=== PATIENT | male | born 1965 | race Caucasian/White ===

== ENCOUNTER 2017-01-06 14:36 | Observation (INO) | payer OTHER ==
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
[2017-01-06] MEDS ORDERED: HYDROmorphONE/DILAUDID 1 MG/ML INJ IVP ONE ×3 (15:03→15:29)
[2017-01-06 15:16] LABS: ANION GAP 15 mEq/L (8-16); CALCIUM 9.9 mg/dL (8.5-10.4); CARBON DIOXIDE 20 mEq/l (22-31); CHLORIDE 106 mEq/L (97-110); CREATININE 1.2 mg/dL (0.7-1.3); GLOMERULAR FILTRATION RATE > 60; GLUCOSE 173 mg/dL (70-100); POTASSIUM 4.7 mEq/L (3.5-5.2); SODIUM 141 mEq/L (134-144)
[2017-01-06] MEDS ORDERED: IOPAMIDOL (ISOVUE-300) 100 ML BTL ONE (15:22)
[2017-01-06] MEDS ORDERED: KETOROLAC 30 MG/1 ML SDV IVP ONE (18:00)
[2017-01-06] MEDS ORDERED: ONDANSETRON 4 MG/2 ML VIAL IVP PRN (18:46)
[2017-01-06] MEDS ORDERED: HYDROmorphONE/DILAUDID 1 MG/ML INJ IVP PRN (18:46)
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
[2017-01-06] MEDS: D5W 1/2 NS W/ 20 KCl/L 1,000 ML IV SCH (19:52)
[2017-01-06] MEDS: FLUTICASONE NASAL 120 SPRAYS/16 GM MDI EACHNARE SCH (20:24)
[2017-01-07] MEDS: KETOROLAC 15 MG/1 ML SDV IVP SCH ×3 (01:38→12:19)
[2017-01-07 04:47] LABS: % IMMATURE GRANULYOCYTES 0.5 % (0.0-1.1); ABSOLUTE IMMATURE GRANULOCYTES 0.06 10^3/uL (0.00-0.10); ADD DIFF? NO; ADD MORPH? NO; ADD SCAN? NO; ATYPICAL LYMPHOCYTE FLAG 0 (0-99); FRAGMENT RBC FLAG 0 (0-99); HEMATOCRIT 38.1 % (40.0-51.0); HEMOGLOBIN 13.9 g/dL (13.7-17.5); LEFT SHIFT FLG 0 (0-99); LIPEMIA HEMOLYSIS FLAG 90 (0-99); MEAN CELL HEMOGLOBIN 32.3 pg (27.9-34.1); MEAN CELL HEMOGLOBIN CONCENTR. 36.5 g/dL (32.4-36.7); MEAN CELL VOLUME 88.6 fL (81.5-99.8); PLATELET CLUMPS FLAG 20 (0-99); PLATELET COUNT 227 10^3/uL (150-400); RED CELL DISTRIBUTION WIDTH 13.1 % (11.5-15.2)
[2017-01-07 04:49] VITALS: RESP 16
[2017-01-07 05:04] LABS: AMYLASE 43 IU/L (30-110); ANION GAP 12 mEq/L (8-16); CALCIUM 9.5 mg/dL (8.5-10.4); CARBON DIOXIDE 24 mEq/l (22-31); CHLORIDE 105 mEq/L (97-110); CREATININE 1.1 mg/dL (0.7-1.3); GLOMERULAR FILTRATION RATE > 60; GLUCOSE 161 mg/dL (70-100); POTASSIUM 4.2 mEq/L (3.5-5.2); SODIUM 141 mEq/L (134-144)
[2017-01-07] MEDS: OXYCODONE/APAP 5/325 TAB PO PRN ×2 (07:37→12:33)
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
[2017-01-07] MEDS ORDERED: metFORMIN HCL 500 MG TAB PO SCH (08:00)
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
[2017-01-07] MEDS ORDERED: SERTRALINE HCL 50 MG TAB PO SCH (09:00)
[2017-01-07] MEDS ORDERED: LOSARTAN POTASSIUM 50 MG TAB PO SCH (09:00)
[2017-01-07] MEDS ORDERED: ENOXAPARIN 40 MG/0.4 ML SYR SC SCH (09:15)
[2017-01-07] MEDS: D5W 1/2 NS W/ 20 KCl/L 1,000 ML IV SCH (09:28)
[2017-01-07] MEDS: FLUTICASONE NASAL 120 SPRAYS/16 GM MDI EACHNARE SCH (09:28)
--- NOTE | 2017-01-07 15:08 | ASMTCMCOM ---
CM Note CM Note Notes: Discussed with PT who feels patient is safe to be independent upon discharge. Met with patient regarding discharge plan of care. Patient is here [place] from [place]. No Case Management needs identified at this time. Patient states he will likely stay in [place] until Friday. He plans on purchasing his DME (cane) through [employer], other equipment provided by therapy. Negative SBIRT, no CAGE needed. Current Discharge Plan: Home independent when medically stable. Case Management available should needs arise. Date Signed: 01/07/2017 03:07 PM Electronically Signed By:Barbra Webber RN
[2017-01-07 15:49] VITALS: BP 136/83; PULSE 86; TEMP 98.4; O2SAT 93
[2017-01-07] MEDS ORDERED: ACETAMINOPHEN 500 MG TAB PO PRN (16:06)
[2017-01-07] MEDS ORDERED: oxyCODONE IR 5 MG TAB PO PRN (16:06)
--- NOTE | 2017-01-07 16:39 | PDDCSUM ---
Discharge Summary Discharge Summary: #[id number] ARTEM Weber MD, FACS
[2017-01-07] MEDS ORDERED: SENNOSIDES/DOCUSATE SODIUM TAB PO SCH (21:00)
[2017-01-07] MEDS ORDERED: FAMOTIDINE 20 MG TAB PO SCH (21:00)
[2017-01-07] MEDS ORDERED: IBUPROFEN 800 MG TAB PO SCH (22:00)
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
--- NOTE | 2017-01-08 09:03 | ASDISCHSUM ---
Discharge Information Plan Status:Home with No Needs Medically Cleared to Leave: Discharge Date:01/07/2017 05:48 PM D/C Disposition:Home, Routine, Self-Care ADT D/C Disposition:Home, Routine, Self-Care Projected Discharge Date:01/07/2017 05:48 PM Transportation at D/C: Discharge Delay Reason: Follow-Up Date:01/07/2017 05:48 PM Discharge Slot: Final Diagnosis: Placement Information Patient Contact Information Contact Name:CARLEY Relationship:Mother Address:[address] Work Phone: City:[facility] Phone: [facility] [address]/Zip Code:[place] [address] Email: Financial Information Financial Class:[employer] Primary Plan Desc:[employer] [facility] Primary Plan Number:[id number] Secondary Plan Desc: Secondary Plan Number: Assessment Information [facility] CM Progress Note CM Note CM Note Notes: Discussed with PT who feels patient is safe to be independent upon discharge. Met with patient regarding discharge plan of care. Patient is here visiting from [place]. No Case Management needs identified at this time. Patient states he will likely stay in [place] until Friday. He plans on purchasing his DME (cane) through [employer], other equipment provided by therapy. Negative SBIRT, no CAGE needed. Current Discharge Plan: Home independent when medically stable. Case Management available should needs arise. Date Signed: 01/07/2017 03:07 PM Electronically Signed By:Barbra Webber RN Intervention Information
== END 2017-01-07 17:48 | disposition home or self-care (01) ==
LOC: F3N 17:11
PROVIDERS: ADMIT Surgery; ATTEND Surgery
DX: S22.43XA Multiple fractures of ribs, bilateral, initial encounter for closed fracture (principal); S32.009A Unspecified fracture of unspecified lumbar vertebra, initial encounter for closed fracture; I10 Essential (primary) hypertension; E11.9 Type 2 diabetes mellitus without complications; V19.9XXA Pedal cyclist (driver) (passenger) injured in unspecified traffic accident, initial encounter
CPT/HCPCS: 71010; 71260; 72129; 72132; 74177; 97161; 97165; G0378; 96374; J1170; J1650; J1885; Q9967